=== PATIENT | male | born 1980 | race Caucasian/White ===

== ENCOUNTER 2016-12-06 15:39 | Emergency (ER) | payer MEDICARE ==
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
== END 2016-12-06 17:17 | disposition disaster alternative care site (69) ==
LOC: GMED 15:39
DX: G89.29 Other chronic pain (principal); M54.5 Low back pain; F41.9 Anxiety disorder, unspecified
CPT/HCPCS: J1885

== ENCOUNTER 2017-05-15 02:10 | Emergency (ER) | payer MEDICARE ==
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
--- NOTE | ~2017-05-15 | ECHO ---
Transthoracic Echocardiography Report (TTE) Demographics Patient Name AUGUSTIN MEDELLIN Date of Study 05/15/2017 Patient Number [id number] Visit Number [id number] Date of 1980 Room Number Gender Male Number Age 36 year(s) Referring Xu Fitzgerald MD Buckle Assembler Etta García T Physician Physician Interpreting Aruna Chamberlain Oyster Culturist Physician A Supervising Ordering Xu Fitzgerald MD, MD/P Physician Nurse Stress Fence Erector Conclusions Summary Suboptimal study with supine patient. Only apical views obtained The estimated left ventricular ejection fraction is 50%. in some views appears even higher Mild to moderately dilated right ventricle. Procedure Type of Study TTE procedure:Echo Limited w/o Contrast. Procedure Date Date: 05/15/2017 Start: 03:36 AM Study Location: ER Technical Quality: Poor visualization due to patient immobility. Additional Indications:unresponsive Appropriate Use Criteria: 9 Patient Status: STAT HR: 148 bpm Findings Right Ventricle Mild to moderately dilated right ventricle. Pericardial Effusion No pericardial effusion. Contractility Score LV regional wall motion:(0-Non visualized 1-Normal 2-Hypokinesis 3-Akinesis 4-Dyskinesis 5-Aneurysm) Signature dtt: Jesi Valdovinos dtd: 05/15/17 0336 Physician Self Edit
[2017-05-15 03:10] LABS: BASOPHIL % 0.3 %; EOSINOPHIL % 0.1 %; HEMATOCRIT 43.6 % (37.0-53.0); HEMOGLOBIN 14.7 g/dL (12.0-17.0); IMMATURE GRANULOCYTE % 0.2 %; LYMPHOCYTE # 2.3 K/uL (0.8-4.0); LYMPHOCYTE % 23.4 %; MCH 30.3 pg (27.0-34.0); MCHC 33.7 gm/dL (32.0-36.5); MCV 89.9 fl (83.0-98.0); MONOCYTE # 0.8 K/uL (0.0-1.0); MONOCYTE % 8.1 %; NEUTROPHIL # (ANC) 6.5 K/uL (1.4-9.0); NEUTROPHIL % 67.9 %; NRBC % 0 /100WBC (0-0.00); PLATELET COUNT 281 K/uL (150-450); RBC 4.85 M/uL (4.00-6.00); RDW-CV 12.7 % (11.9-14.6); WBC 9.6 K/uL (4.0-11.0)
[2017-05-15 03:25] LABS: BILIRUBIN URINE NEGATIVE (NEGATIVE); BLOOD URINE NEGATIVE /UL (NEGATIVE); COLOR URINE YELLOW (YELLOW); GLUCOSE URINE NEGATIVE (NEGATIVE); KETONE URINE 5 mg/dL (NEGATIVE); LEUKOCYTES URINE 25 /UL (NEGATIVE); NITRITE URINE NEGATIVE (NEGATIVE); PROTEIN URINE NEGATIVE (NEGATIVE); TURBIDITY URINE CLEAR (CLEAR); UROBILINOGEN URINE NORMAL (NORMAL)
[2017-05-15 03:31] LABS: ALBUMIN 3.8 gm/dL (3.5-5.0); ALK PHOS 82 IU/L (33-138); ALT 30 IU/L (12-78); ANION GAP 12.6 (10.0-19.0); AST 20 IU/L (10-40); BLOOD UREA NITROGEN 5 mg/dL (6-24); CALCIUM 8.6 mg/dL (8.5-10.5); CHLORIDE 110 mMol/L (96-110); CO2 24 mMol/L (22-32); CREATININE 0.9 mg/dL (0.6-1.3); POTASSIUM 3.6 mMol/L (3.7-5.1); SODIUM 143 mMol/L (135-145); TOTAL BILIRUBIN 0.4 mg/dL (0.0-1.5)
[2017-05-15 03:43] LABS: BARBITURATE NEGATIVE (NEGATIVE); COCAINE NEGATIVE (NEGATIVE)
[2017-05-15 03:44] LABS: AMPHETAMINE NEGATIVE (NEGATIVE); OPIATES POSITIVE (NEGATIVE)
[2017-05-15 04:17] LABS: BACTERIA URINE NEGATIVE (NEGATIVE); RBC URINE NEGATIVE #/HPF (NEGATIVE); WBC URINE 0-2 #/HPF (NEGATIVE)
== END 2017-05-15 04:21 ==
LOC: GMED 02:10
PROVIDERS: Emergency Medicine
DX: S00.01XA Abrasion of scalp, initial encounter (principal); S00.81XA Abrasion of other part of head, initial encounter; R45.851 Suicidal ideations; F41.9 Anxiety disorder, unspecified; F32.9 Major depressive disorder, single episode, unspecified; F43.10 Post-traumatic stress disorder, unspecified; E03.9 Hypothyroidism, unspecified; G47.00 Insomnia, unspecified; Z98.890 Other specified postprocedural states; X58.XXXA Exposure to other specified factors, initial encounter
CPT/HCPCS: G0480